=== PATIENT | female | born 1995 | race Caucasian/White ===

== ENCOUNTER 2021-11-29 13:32 | Outpatient (CLI) | payer OTHER, SELFPAY ==
--- NOTE | 2021-11-29 13:42 | ECHO_ITS ---
Patient Info Name: Tracie Jeong Age: 26 years : 1995 Gender: Female Ht: 65 in Wt: 135 lbs BSA: 1.68 m2 HR: 100 bpm BP: 131 / 95 mmHg Technical Quality: Good Exam Date: 11/29/2021 2:12 PM Exam Location: [facility] Patient Status: Outpatient Admit Date: 11/29/2021 Staff Ordering Physician: Chyna Bolton Poultry Picking Machine Tender: Shantanu Burns RDCS, RT Attending Provider: Chyna Bolton Referring Physician: Hoang LYONS; Exam Type: CA echo doppler color flow Study Info Indications R94.31 - Abnormal electrocardiogram ECG EKG Complete two-dimensional, color flow and Doppler transthoracic echocardiogram is performed. Strain analysis performed. Summary 1. Complete two-dimensional, color flow and Doppler transthoracic echocardiogram is performed. 2. Left ventricular chamber dimension is normal. 3. Left ventricular systolic function is normal, estimated at 60-65%. 4. The left ventricular diastolic function is normal. 5. E/e' 7 is not elevated. 6. Global longitudinal strain is normal at -19.0%. 7. There is trace mitral valve regurgitation. 8. No pulmonary hypertension, estimated pulmonary arterial systolic pressure is 19 mmHg. Left Ventricle E/e' 7 is not elevated. Global longitudinal strain is normal at -19.0%. Left ventricular chamber dimension is normal. Left ventricular systolic function is normal, estimated at 60-65%. The left ventricular diastolic function is normal. Right Ventricle Right ventricular systolic function is normal and with normal TAPSE 2.1 cm. Right ventricular chamber dimension is normal. Left Atria Left atrial chamber dimension is normal. Right Atria Right atrial chamber dimension is normal. Aortic Valve The aortic valve is trileaflet. There is no aortic valve stenosis. There is no aortic valve regurgitation. Pulmonic Valve There is no pulmonic regurgitation. Mitral Valve There is no mitral valve stenosis. There is trace mitral valve regurgitation. Tricuspid Valve There is no tricuspid valve regurgitation. No pulmonary hypertension, estimated pulmonary arterial systolic pressure is 19 mmHg. Pericardium/Pleural There is no pericardial effusion. Inferior Vena Cava Normal inferior vena cava with >50% collapse upon inspiration consistent with normal right atrial pressure, 5 mmHg. Aorta The aortic root size at the sinus of Valsalva is normal. Left Ventricular Outflow Tract Name Value Normal LVOT 2D LVOT Diameter 2.0 cm LVOT Doppler LVOT Peak Gradient 4 mmHg LVOT Mean Gradient 2 mmHg LVOT VTI 16 cm LVOT VTI/AV VTI Ratio 0.8 LVOT Stroke Volume 48 ml LVOT CO 4.7 l/min LVOT CI 2.8 l/min/m2 Mitral Valve Name Value Normal MV Doppler
== END 2021-11-29 13:33 | disposition home or self-care (01) ==
PROVIDERS: PCP Family Medicine; Visit Provider Clinical Nurse Specialist
DX: R94.31 Abnormal electrocardiogram [ECG] [EKG] (principal)
CPT/HCPCS: 93306

== ENCOUNTER → 2023-08-01 15:25 | Outpatient (CLI) | payer OTHER, SELFPAY ==
--- NOTE | ~2023-08-01 | US_ITS ---
EXAMINATION: US OB <=14 wk fetus w TV DATE: 08/01/2023 15:53 INDICATION: Confirmation of viability during first trimester with spotting. TECHNIQUE: Real-time pelvic ultrasound utilizing both a transvaginal and transabdominal probe was pe rformed. The interpreting radiologist was not present for the study. COMPARISON: None. FINDINGS: The uterus measures 10.3 x 8.0 x 5.9 cm. There is an intrauterine gestational sac. A yolk sac and fe nisreen pole are identified. The crown rump length measures 2.5 cm, which correlates with an estimated ge stational age of 9 weeks and 1 days. heart motion is identified measuring 181 beats per minute (bpm) by M-mode Doppler. Very small anechoic subchorionic hematoma measuring 11 x 8 x 5 mm along the caudal margin of the gestational sac. The right ovary measures 2.5 x 1.5 x 1.7 cm. The left ovary measures 3.1 x 2.4 x 2.5 cm. 2.3 similar anechoic cyst in the left ovary. There are few subcentimeters anechoic follicles in the right ovary. Vascular flow identified in both ovaries on color Doppler. There is no free fluid in the pelvis. IMPRESSION: 1. Single living fetus with heart rate of 181 bpm. 2. Gestational age by ultrasound of 9 weeks 1 day(s) +/- 6 day(s) with ultrasound estimated date of delivery (HAYLEY) of 03/04/2024. Reviewed, dictated and finalized at location A. TENDER IMPRESSION: 1. Single living fetus with heart rate of 181 bpm. 2. Gestational age by ultrasound of 9 weeks 1 day(s) +/- 6 day(s) with ultraso und estimated date of delivery (HAYLEY) of 03/04/2024.
== END ==
PROVIDERS: PCP Internal Medicine; Visit Provider Advanced Practice Midwife
DX: O26.851 Spotting complicating pregnancy, first trimester (principal); O36.80X0 Pregnancy with inconclusive fetal viability, not applicable or unspecified; Z3A.00 Weeks of gestation of pregnancy not specified
CPT/HCPCS: 76801; 76817

== ENCOUNTER 2023-09-03 15:23 | Outpatient (CLI) | payer OTHER, SELFPAY ==
--- NOTE | ~2023-09-03 | US_ITS ---
EXAMINATION: US OB follow up DATE: 09/03/2023 15:48 INDICATION: Subchorionic hematoma follow-up. TECHNIQUE: Real-time ultrasound of the pelvis was performed. COMPARISON: Ultrasound 08/01/23 FINDINGS: There is a single living fetus in vertex presentation. The placenta is posterior. heart rate i s 157 beats per minute (bpm). The amniotic fluid volume is subjectively normal. Left ovary measures 3 .2 x 2.2 x 2.4 cm. The following biometric data were obtained: Biparietal diameter (BPD): 2.5 cm; head circumference (HC): 9.3 cm; abdominal circumference (AC): 8.0 cm; femur length (FL): 1.5 cm. These measurements are concordant. Estimated weight is 96 g +/- 14 g, which correlates with the 70th percentile when 03/04/24 is us ed as estimated date of delivery. As single measurements, these parameters are each equal to the following estimated gestational ages: BPD: 14 weeks 2 days. HC: 14 weeks 2 days. AC: 14 weeks 3 days. FL: 14 weeks 3 days. estimated gestational age based solely on measurements from this exam is 14 weeks 3 days +/- 1 weeks 0 days. IMPRESSION: 1. Single living fetus in vertex presentation. 2. Estimated weight is 96 g +/- 14 g, which correlates with the 70th percentile when 03/04/24 i s used as estimated date of delivery. 3. No subchorionic hematoma. Reviewed, dictated and finalized at location A. IMPRESSION: 1. Single living fetus in vertex presentation. 2. Estimated weight is 96 g +/- 14 g, which correlates with the 70th per centile when 03/04/24 is used as estimated date of delivery. 3. No subchorionic hematoma.
== END 2023-09-03 15:24 ==
PROVIDERS: PCP Internal Medicine; Visit Provider Obstetrics & Gynecology Gynecology
DX: O36.8910 Maternal care for other specified fetal problems, first trimester, not applicable or unspecified (principal); Z3A.14 14 weeks gestation of pregnancy
CPT/HCPCS: 76816

== ENCOUNTER 2023-10-05 15:23 | Outpatient (CLI) | payer OTHER, SELFPAY ==
--- NOTE | ~2023-10-05 | US_ITS ---
US OB /maternal detail DATE: 10/05/2023 15:58 INDICATION: anatomy screen TECHNIQUE: Real-time imaging and Doppler analysis COMPARISON: 09/03/2023 obstetrical ultrasound examination FINDINGS: Live gaffney intrauterine gestation, fetus in longitudinal lie, vertex presentation with heart rate of 141 bpm. Posterior placenta, lower range well above the internal os. Subjectively normal amount of amniotic fluid. The cerebral ventricles, cerebellum and cisterna magna appear normal. Normal nuchal fold thickn ess. spine appears normal. Four-chamber heart. The diaphragm is intact. Fluid is demonst rated in the stomach and urinary bladder. The kidneys are unremarkable without hydronephr osis. Three-vessel umbilical cord with normal insertion at abdominal wall. Four extremities are demonstrated. Normal facial features. Biparietal diameter 4.32 cm; 19 weeks 0 days Head circumference 15.71 cm; 18 weeks 4 days Abdominal circumference 12.51 cm; 18 weeks 1 day Femur length 2.89 cm; 18 weeks 6 days Composite age by Hadlock formula based upon the current measurements is 18 weeks 5 days +/- 1 week 2 days with HAYLEY of 03/02/2024 compared to 03/05/2024 by LMP and 03/04/2024 by the August 01, 2019 ultrasound examination measurements. Estimated weight is 243.7 +/- 37 g. Estimated weight-GP: 50.6% Head circumference/abdominal circumference 1.26, within upper normal range of 1.09-1.26 IMPRESSION: Normal anatomy screen Reviewed, dictated and finalized at Location A. Reviewed, dictated and finalized at location A. IMPRESSION: Normal anatomy screen
== END 2023-10-05 15:24 ==
PROVIDERS: PCP Internal Medicine; Visit Provider Nurse Practitioner Women's Health
DX: Z36.9 Encounter for antenatal screening, unspecified (principal); Z3A.18 18 weeks gestation of pregnancy
CPT/HCPCS: 76805

== ENCOUNTER 2024-03-03 06:06 | Inpatient (IN) | payer OTHER, SELFPAY ==
[2024-03-03] VITALS (140 sets, daily range): BP systolic 90–215; BP diastolic 46–186; PULSE 71–139; RESP 16–18; TEMP 36.6–37.6; O2SAT 79–100; BMI 27.1
--- NOTE | 2024-03-03 06:20 | P.PNAN_ITS ---
Anes - Eval Pre Procedure Procedure: Labor epidural Date/Time: 03/03/24 06:20 Surgeon: Anthony Preop Diagnosis: Abdominal pain with contractions Pre Op Diagnosis: IOL Patient Data Age: 28 Gender: F Height: Weight: Allergies Allergy/AdvReac Type Severity Reaction Status Date / Time amoxicillin [From Augmentin] Allergy Intermediate Rash Verified 02/08/24 15:25 clavulanic acid Allergy Intermediate Rash Verified 02/08/24 15:25 [From Augmentin] grass pollen Allergy Mild Unknown Verified 02/08/24 15:25 sesame seed Allergy Mild unknown Verified 02/08/24 15:25 tree and shrub pollen Allergy Mild Unknown Verified 02/08/24 15:25 pet dander Allergy Mild Unknown Uncoded 02/08/24 15:25 Home Medications Medication Instructions Recorded Confirmed Type aspirin 81 mg tablet 81 mg PO DAILY 02/08/24 02/08/24 History ergocalciferol (vitamin D2) 1,250 1,250 mcg PO WEEKLY 02/08/24 02/08/24 History mcg (50,000 unit) capsule (Vitamin D2) vits no.126-ferrous fum 1 tablet PO DAILY 02/08/24 02/08/24 History 28 mg iron-folic acid 800 mcg tablet (Classic ) : gestational age HCG: positive Patient hx anesthesia problems: none Family hx anesthesia problems: none Results Review: All pre-operative results and documents have been reviewed as part of the pre- operative evaluation. [facility] Past Medical History Medical History Allergies Obesity and not yet delivered Family History Family History Father Diabetes mellitus Social History Social History Smoking status: Never smoker Alcohol intake: never Substance use: never Spiritual care concerns: No Exam Day of Procedure 03/03/24 06:20 Patient weight: obese Heart: regular rate and rhythm Lungs: clear to auscultation Airway: Mallampati scale class II and class III Neurological: alert and oriented
[2024-03-03 06:54] LABS: Basophils Absolute Auto 0.1 K/mm3 (0.0-0.1); Basophils Percent Auto 0.6 % (0.2-1.2); Eosinophils Percent Auto 0.4 % (0-4.4); Hematocrit 36.2 % (37.0-47.0); Hemoglobin 12.4 g/dL (12.0-15.0); Immature Granulocyte Absolute 0.04 K/mm3 (0.00-0.031); Immature Granulocyte Percent A 0.4 % (0-0.5); Lymphocytes Absolute Auto 1.68 K/mm3 (0.9-3.2); Mean Corpuscular HGB Conc 34.3 g/dl (32-36); Mean Corpuscular Hemoglobin 31.6 pg (26-34); Mean Corpuscular Volume 92.1 fl (80-100); Mean Platelet Volume 11.7 fl (7.4-10.4); Monocytes Absolute Auto 0.5 K/mm3 (0.1-0.6); Monocytes Percent Auto 4.8 % (2.6-8.5); Neutrophils Absolute Auto 7.1 K/mm3 (1.3-6.7); Neutrophils Percent Auto 75.8 % (45.5-73.1); Platelet Count Result 175 k/mm3 (150-375); Red Blood Count 3.93 M/mm3 (4.2-5.4); Red Cell Distribution Width 14.5 % (11.5-14.5); White Blood Count 9.3 K/mm3 (4.5-10.0)
[2024-03-03] MEDS: OXYTOCIN 30 UNITS/NS 500 ML 30 UNITS/500 ML BAG IV CONT (07:04)
[2024-03-03] MEDS: LACTATED RINGERS 1,000 ML 125 ML IV CONT ×3 (07:05→12:45)
--- NOTE | 2024-03-03 07:26 | LDADM ---
This patient, Tracie Jeong, was admitted to Labor/Delivery/Recovery 103 on 03/03/24 at 06:06. Plans for labor, pain management and were discussed with patient. Patient/family oriented to hospital policies and general routines including ID bracelet, bed and alarms, visiting hours, pain management, procedures, bathroom and other care routines, personal items, smoking policy, room service/diet and guest tray routines, security routines, and visiting hours. Patient/Family are encouraged to report perceived risks to care and to ask questions if they do not understand what they are told or what they should do. See OBIX for further documentation.
--- NOTE | 2024-03-03 07:33 | WPDOBADMIT ---
Obstetrics - Admit Note Admission Note: record reviewed. No pertinent additions to the history and/or any subsequent changes in the physical findings that are not consistent with the expected course of the were found. Additions to the history and/or subsequent changes in the physical findings follow. None.
--- NOTE | 2024-03-03 07:40 | PM.OBPNLAB ---
Pain Control Date/time seen: 03/03/24 07:38 Pain control: tolerating well Pelvic Exam Dilation (cm): 1 (1.5) Effacement (%): 80 station: -2 Amniotic membrane status: Intact Comments: head well applied to cervix. Contractions Monitor mode: External Contraction pattern: Irregular Contraction intensity: Mild Status status: Category l Assessment and Plan Pitocin rate (mU/min): 2 Comments: CNM to bedside. Discussed plan of care and option for amniotomy. Discussed risks, benefits, and expectations of breaking water. Patient is agreeable. Amniotomy performed and there was a small return of clear amniotic fluid. Patient tolerated procedure well. Anticipate vaginal . Dr. Hull updated.
[2024-03-03 07:53] LABS: HIV 1/2 Ab P24 Ag Result Negative (Negative)
[2024-03-03 08:11] LABS: Rapid Plasma Reagin Non-Reactive (NonReactive)
--- NOTE | 2024-03-03 16:15 | P.PCNOB_ITS ---
OB - Vaginal Delivery Note Procedure Delivery date: 03/03/24 Induction method: AROM and Per Pitocin Protocol Delivery monitor: External FHT and Internal Uterine Route of delivery: Episiotomy description: None Laceration Description: Perineal - 2nd Degree and Labial (left- 1st degree with repair, right-superficial) Delivery repair: vicryl Specimen: No Quantitative Blood Loss (ml): 255 Anesthesia type: Epidural Disposition: Floor Complications: No immediate complications Narrative: Tracie Presented for elective induction at term. She received Pitocin and an amniotomy was performed. She progressed well and pushed when she was fully dilated. She steadily delivered the entire head. After this time, fair restitution was observed. There is smooth, steady delivery of the anterior and posterior shoulders followed by the remainder of the infant. The infant was placed on maternal abdomen and dried and stimulated by the nursery staff. After 1 minute of life, the cord was doubly clamped and cut. Cord blood, cord gases, and cord segment were obtained. The placenta delivered spontaneously in the Pfeiffer presentation. the vulva and vaginal mucosa were examined and a second- degree perineal laceration was sustained as well as a first-degree left labial and a superficial right labial. The second-degree laceration was repaired in usual fashion followed by repair of the left labial laceration as it was not hemostatic. There was excellent uterine tone and hemostasis. All delivery counts correct. Mother and baby skin to skin in the delivery room. [place] Baby Date of : 03/03/24 Time of : 15:40 Gestational Age by Date: 39 Infant gender: Female Weight (pounds): 0 (unavailable at time of note) presentation: vertex position: Left Occiput Anterior Placenta delivery description: Spontaneous and Normal Configuration Cord Vessel Description: 3 Vessels and Delayed Cord Clamping score one minute: 8 score five minutes: 9
--- NOTE | 2024-03-03 16:20 | PM.OBDSVD ---
DS: Admitting Diagnosis Discharge Date 03/05/24 Admitting Diagnosis 28 y.o. at term Elective IOL Rubella Non-Immune DS: Discharge Diagnosis Discharge Diagnosis (1) (normal spontaneous vaginal delivery): Code(s): O80 - Encounter for full-term uncomplicated delivery Status: Acute (2) Mother currently breastfeeds: Status: Acute (3) Rubella non-immune status, delivered, current hospitalization: Code(s): O99.892 - Other specified diseases and conditions complicating childbirth; Z28.39 - Other underimmunization status Status: Acute OB - DS: Summary Hospital Course Hospital Course: Uncomplicated OB Procedures : Ultrasound OB Procedures Intrapartum: Spontaneous Vag Delivery OB Procedures: : Rubella lg Peripartum Data Delivery Method: Natural Vaginal Laceration Description: Perineal - 2nd Degree and Labial (left- 1st degree with repair, right-superficial) Episiotomy description: None complications: none Status at Discharge Functional status at discharge: independent ambulation Overall status at discharge: patient is progressing back to baseline Time Spent with Patient Time attestation: Total time spent providing and/or coordinating discharge services: Exam Narrative: Alert and oriented. Mood is pleasant and cooperative. Perineum with minimal edema. Fundus firm and below umbilicus. Const: General: cooperative, healthy appearing, no acute distress and alert Orientation/consciousness: patient oriented x3 Limitations: no limitations Resp: Effort & Inspection: normal respiratory effort and able to speak in complete sentences Cardio: Rate: regular rate GI: Inspection: normal to inspection : General: Yes bladder normal to palpation External Female Exam: other (lochia WNL) Bimanual exam- vagina & uterus: bladder normal to palpation Other: Fundus firm and below U Skin: General skin exam: normal color and no rashes or lesions noted Neuro: General: patient oriented x3 and moves all extremities Cognition (Neuro): normal cognition Extrem: General: normal to inspection and no calf tenderness Psych: Appearance: grossly normal Mental Status: mental status grossly normal Affect: normal affect Thought process: Normal thought process present DS: Data Data Completed and Pending Labs on day of discharge: Labs from last 24 hours 03/03/24 06:48 WBC 9.3 RBC 3.93 L Hgb 12.4 Hct 36.2 L MCV 92.1 MCH 31.6 MCHC 34.3 RDW 14.5 Plt Count 175 MPV 11.7 H Immature Gran % (Auto) 0.4 Neut % (Auto) 75.8 H Lymph % (Auto) 18.0 L [place] % (Auto) 4.8 Eos % (Auto) 0.4 Baso % (Auto) 0.6 Lymph # (Auto) 1.68 [place] # (Auto) 0.5 Eos # (Auto) 0.0 Baso # (Auto) 0.1 Abs Immat Gran (auto) 0.04 H Absolute Neuts (auto) 7.1 H Absolute Nucleated RBC 0.000 Nucleated RBC % 0.0 RPR Non-reactive HIV 1&2 Ab/P24 Ag 4thGn Negative Blood Type O Positive Antibody Screen Negative Discharge Plan Discharge Attending physician on discharge: Consuelo Cruz Discharging Clinician: Sabi Auguste Anticipated Discharge Date/Time: 03/05/24 10:00 Patient Disposition: Home, Self-Care Activity: may shower and pelvic rest Diet: regular Wound Care Instructions: follow printed instructions Discharge Instructions: Continue taking your vitamin and any other supplements as previously directed (Examples: Iron, Vitamin D). You may take Tylenol 1000mg over the counter every 6 hours as needed for pain. Do not exceed 4000mg of Tylenol daily. You may continue using tucks pads and dermoplast spray if needed for a few more days. Depression Notify provider for signs or symptoms. These may include- Feelings: Feeling anxious, angry, hopeless, guilt, or loss of interest/pleasure in activities you normally enjoy. Mood swings or panic attacks. General: Extreme fatigue, loss of your
[2024-03-03] MEDS: OXYTOCIN 30 UNITS/NS 500 ML 30 UNITS/500 ML BAG 125 UNITS IV CONT (16:22)
--- NOTE | 2024-03-03 17:00 | PC.NURSE ---
Consulted with patient to assess needs related to . Discussed with mother her successes, concerns and any questions she has. We reviewed working with the , supporting breast, good positioning. Encouraged understanding the benefits of skin to skin, frequencies of feeding 8-12 times in 24 hours (approximately 2-3 hours), duration of feedings. Reviewed positioning and alignment, supporting breast, off-centered (asymmetrical latch) and leading with the chin with big, open, wide gape. Infant latched to the [right] breast in [cross cradle] position. Education given to the mother of how to visualize the suckling (with good rocking jaw motion). Mom's right nipple is mostly flat and inverted, and the breast tissue is very firm. The infant was [able] to maintain latch, but would come off after a minute and then relatch with mother's assistance. Reviewed with mom how to compress and hold the breast tissue so baby has a bite to latch onto. We discussed options including the nipple everter and the nipple shield. Mom is aware that the nipple shield can be an effective tool but does have risks associated with it. Through the night tonight, mom may decide she wants to try the shield, but if she wants to hold off for now and see how baby does latching to the right with more practice, we can always pump the right breast to stimulate for now while they are learning. Will discuss these options with oncoming night nurse and reevaluate patient tomorrow. Mother voiced understanding of the education shared, to call for assistance if the infant does not latch or if there is discomfort with . Reported to the Primary RN.
[2024-03-03] MEDS: IBUPROFEN 600 MG TABLET PO (18:15)
[2024-03-03] MEDS: BENZOCAINE 20% AER SPR (*SP) 56 GM CAN 1 SPRAY TOPICAL (19:37)
[2024-03-03] MEDS: WITCH HAZEL 40 PADS 1 PAD TOPICAL (19:37)
--- NOTE | 2024-03-03 19:59 | OBPPTRN ---
Patient transferred to post room #291 via w/c. Support person present. Oriented to unit, room, information board, rooming in, admission packet and security measures. Patient verbalizes understanding.
[2024-03-03] MEDS: ACETAMINOPHEN 325 MG TABLET 650 MG PO (20:22)
[2024-03-04] MEDS: IBUPROFEN 600 MG TABLET PO ×4 (01:18→23:45)
[2024-03-04 05:13] LABS: Hematocrit 33.7 % (37.0-47.0); Hemoglobin 11.1 g/dL (12.0-15.0)
--- NOTE | 2024-03-04 07:08 | P.PNOB_ITS ---
OB - PN: Subj Subjective Date/time seen: 03/04/24 0655 Interval history: Doing well. Urinating without difficulty. Denies passing any large clots. Denies dizziness with ambulating. Tolerating po food and fluids. Bonding with infant. Patient comments: pain well controlled [place] baby status: nursing well feeding status: exclusively breast feeding OB - PN: Obj Data Labs 03/04/24 04:47 Labs: Laboratory Results - last 24 hr 03/03/24 03/04/24 06:48 04:47 Hgb 11.1 L Hct 33.7 L RPR Non-reactive HIV 1&2 Ab/P24 Ag 4thGn Negative Blood Type O Positive Antibody Screen Negative OB - PN A/P Assessment and Plan (1) (normal spontaneous vaginal delivery): Code(s): O80 - Encounter for full-term uncomplicated delivery Status: Acute (2) Mother currently breastfeeds: Status: Acute (3) Rubella non-immune status, delivered, current hospitalization: Code(s): O99.892 - Other specified diseases and conditions complicating childbirth; Z28.39 - Other underimmunization status Status: Acute Plan day: 1 Plan: routine care Time Spent With Patient Time: Total time spent is greater than 50% in coordination of care (as documented) at patient's floor/unit and/or counseling patient: Review of Systems Review of Systems: All systems reviewed & are unremarkable except as noted in HPI and below Exam Narrative: Alert and oriented. Mood is pleasant and cooperative. Perineum with moderatel edema. Fundus firm and below umbilicus. Const: General: cooperative, healthy appearing, no acute distress and alert Orientation/consciousness: patient oriented x3 Limitations: no limitations Resp: Effort & Inspection: normal respiratory effort and able to speak in complete sentences GI: Inspection: normal to inspection Auscultation: normal bowel sounds : General: Yes bladder normal to palpation External Female Exam: other (lochia WNL) Bimanual exam- vagina & uterus: bladder normal to palpation Other: Fundus firm and below U Skin: General skin exam: normal color and no rashes or lesions noted Neuro: General: patient oriented x3 and moves all extremities Cognition (Neuro): normal cognition Extrem: General: normal to inspection and no calf tenderness Psych: Appearance: grossly normal Mental Status: mental status grossly n ormal Affect: normal affect Thought process: Normal thought process present
--- NOTE | 2024-03-04 07:35 | WPDANLDPN2 ---
Anes-Prog Note L&D Date/Time: 03/04/24 07:35 Comfortable throughout: labor and delivery Neuraxial method: epidural Epidural/Spinal procedure site: clean & non-tender Neuro status: Neuro function grossly intact. Cardiovascular status: normal Respiratory status: normal Airway patency: baseline Mental status: baseline Post-Op hydration status: normal Vital Signs: Last Vital Signs Temp 97.9 F 03/03/24 23:30 Pulse 86 03/03/24 23:30 Resp 16 03/03/24 23:30 BP 117/78 03/03/24 23:30 Pulse Ox 90 03/03/24 15:40 O2 Del Method Room Air 03/04/24 06:40 Pain score (VAS): 0 I/O: Intake & Output 03/03/24 03/03/24 03/04/24 15:59 23:59 07:59 Intake Total 1999 1354.2 Output Total 455 Balance 1999 899.2 Post-procedural complaints: none Patient feedback: Patient satisfied with anesthetic care.
[2024-03-04 07:55] VITALS: BP 124/81; PULSE 88; RESP 16; TEMP 36.9; O2SAT 100
[2024-03-04] MEDS: DOCUSATE SODIUM 100 MG CAPSULE PO ×2 (08:17→17:50)
[2024-03-04] MEDS: MULTIVIT/MIN/PREN/FOL AC/IRON TABLET 1 TAB PO (08:18)
[2024-03-04] MEDS: ACETAMINOPHEN 325 MG TABLET 650 MG PO ×3 (08:18→21:20)
--- NOTE | 2024-03-04 09:25 | PC.NURSE ---
Met with mom to discuss plan for feeding and pumping today. She has her breast pump in the car and will get it so we can make sure she knows how to use it, and she can pump the right breast or hand express, whatever works best for her. Baby has been attempting to latch to the right, but with little success. Mom has the nipple everter to try but the right nipple doesn't maintain an everted position. Mom will call out for feeding assistance and pump help. Baby has been feeding on the left breast through the night. Reported to Primary RN.
--- NOTE | 2024-03-04 10:40 | PC.NURSE ---
Nipple shield provided to mother due to [flat nipple on the right breast and infant unable to maintain a latch]. Reviewed good handwashing, cleaning the nipple shield and the appropriate way to apply and use as a tool. Discussed with mom the nipple shield precautions, possible complications associated with the risks and benefits. Reviewed practicing with a nipple shield, then without and how to protect the milk supply and production. Patient received the nipple shield handout. Mom and baby guide referred to as a resource for outpatient services. Mom voiced understanding of the importance of hand expression, nipple stimulation and initiating a pumping schedule if continues to nurse with the shield. Patient has her own pump and will bring in from car this afternoon. Reported to the Primary RN.
[2024-03-04 12:25] VITALS: BP 121/74; PULSE 78; RESP 18; TEMP 36.7; O2SAT 99
--- NOTE | 2024-03-04 15:35 | PC.NURSE ---
1430. Primary RN called to report mom was trying to feed and and could use some help with latching. Mom reports she has started using a nipple shield this morning due to a flat and inverted nipple on the R breast. Attempted to latch baby on the R breast with the shield and she was able to latch optimally, and continued to nurse for 10 minutes. L breast offered but appears content and not interested at this time. Discussed with patient how to wean off the nipple shield with time, and how to care for sore/tender nipples. Reviewed early feeding cues and discussed cluster feeding per patients request. Patient verbalized understanding.
[2024-03-04 21:04] VITALS: BP 107/64; PULSE 84; RESP 18; TEMP 36.9; O2SAT 98
[2024-03-05 07:40] VITALS: BP 114/71; PULSE 80; RESP 16; TEMP 36.8; O2SAT 98
--- NOTE | 2024-03-05 08:05 | PM.OBPNVD ---
OB - PN: Subj Subjective Date/time seen: 03/05/24 0750 Interval history: day 2. Doing well. Urinating without difficulty. Denies passing any large clots. Denies dizziness with ambulating. Tolerating po food and fluids. Bonding with infant. Patient comments: no complaints and pain well controlled [place] baby status: doing well and nursing well [place] feeding status: exclusively breast feeding OB - PN: Obj Data Labs 03/04/24 04:47 OB - PN A/P Assessment and Plan (1) (normal spontaneous vaginal delivery): Code(s): O80 - Encounter for full-term uncomplicated delivery Status: Acute (2) Mother currently breastfeeds: Status: Acute (3) Rubella non-immune status, delivered, current hospitalization: Code(s): O99.892 - Other specified diseases and conditions complicating childbirth; Z28.39 - Other underimmunization status Status: Acute Assessment and Plan: plan MMR prior to DC Plan day: 2 Plan: discharge home Time Spent With Patient Time: Total time spent is greater than 50% in coordination of care (as documented) at patient's floor/unit and/or counseling patient: Review of Systems Review of Systems: All systems reviewed & are unremarkable except as noted in HPI and below Exam Narrative: Alert and oriented. Mood is pleasant and cooperative. Perineum with minimal edema. Fundus firm and below umbilicus. Const: General: cooperative, healthy appearing, no acute distress and alert Orientation/consciousness: patient oriented x3 Limitations: no limitations Resp: Effort & Inspection: normal respiratory effort and able to speak in complete sentences Cardio: Rate: regular rate GI: Inspection: normal to inspection : General: Yes bladder normal to palpation External Female Exam: other (lochia WNL) Bimanual exam- vagina & uterus: bladder normal to palpation Other: Fundus firm and below U Skin: General skin exam: normal color and no rashes or lesions noted Neuro: General: patient oriented x3 and moves all extremities Cognition (Neuro): normal cognition Extrem: General: normal to inspection and no calf tenderness Psych: Appearance: grossly normal Mental Status: mental status grossly normal Affect: normal affect Thought process: Normal thought process present
[2024-03-05] MEDS: IBUPROFEN 600 MG TABLET PO (08:10)
[2024-03-05] MEDS: MULTIVIT/MIN/PREN/FOL AC/IRON TABLET 1 TAB PO (08:11)
[2024-03-05] MEDS: DOCUSATE SODIUM 100 MG CAPSULE PO (08:11)
[2024-03-05] MEDS: MEASLES,MUMPS,RUBELLA VACCINE 0.5 ML VIAL SUB-Q (09:52)
--- NOTE | 2024-03-05 11:15 | PC.NURSE ---
Consulted with mother concerning needs and she shared her ability to independently latch infant optimally with the nipple shield on the right and mostly without the shield on the left. Mother is feeding appropriately for growth of infant and understands stimulating infant to eat if needed. Infant has had appropriate feedings in the last 24 hours meets the outcomes for weight, output, blood sugar and jaundice at this time. Reinforced understanding of milk production, transition of milk, signs of adequate intake, transition of stool, prevention/relief of engorgement, plugged ducts, mastitis, responsive watching for feeding cues, the different methods of stimulating infant to breastfeed 1-3 hours after the start of the last feeding, community resources, and when to call a provider using the resource of the feeding sheet along with the mom and baby guide. Mom has a pump for home use and will pump as needed for milk supply with nipple shield use. Mother voiced understanding of the information shared, is confident to continue effectively her at home, when to call for assistance, denies any additional assistance or education at this time. Reported to the Primary RN.
[2024-03-06 11:28] VITALS: BP 127/79; PULSE 97; RESP 18; TEMP 37; O2SAT 98
== END 2024-03-05 14:15 | disposition home or self-care (01) | DRG 807 ==
LOC: ANHLDR 16:23 → ANHOB2 21:20
PROVIDERS: Advanced Practice Midwife; Admitting Provider Obstetrics & Gynecology Gynecology; PCP Internal Medicine; Visit Provider Obstetrics & Gynecology Gynecology
DX: O77.0 Labor and delivery complicated by meconium in amniotic fluid (principal); Z37.0 Single live birth; Z3A.40 40 weeks gestation of pregnancy; O70.1 Second degree perineal laceration during delivery; Z28.39 Other underimmunization status
CPT/HCPCS: 36415; 85014; 85018; 85025; 86592; 86703; 86850; 86900; 86901; 90710; A9270; G0432; J2590; J2795; J7120